=== PATIENT | female | born 1930 | race Caucasian/White ===

== ENCOUNTER → 2017-08-09 | Outpatient (CLI) | payer OTHER | LOC: BHFA 15:30 | PROVIDERS: ATTEND Internal Medicine Cardiovascular Disease | DX: I48.0 Paroxysmal atrial fibrillation (principal) ==

== ENCOUNTER 2017-12-12 00:31 | Emergency (ER) | payer OTHER ==
[2017-12-12] MEDS ORDERED: LET GEL TOPICAL 1 EA SYR TP ONE ×2 (00:36→00:39)
--- NOTE | 2017-12-12 00:50 | EDPHY ---
H & P Time Seen by Provider: 12/12/17 00:48 HPI/ROS: CC: scalp laceration HPI: History per son. Patient is a poor historian. 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 Son states that she was sitting on the toilet and she scraped her head on the vanity that was mounted behind the toilet. She did not fall off the toilet or lose consciousness. He put some antibiotic ointment on it but it continued to ooze blood so he brought her in for evaluation. She states she has no discomfort. She has not been ill recently. She denies any preceding symptoms such as dizziness, lightheadedness, chest pain, shortness of breath, abdominal pain, frequency or dysuria. Her tetanus is up-to-date. She did have a flu shot this year. REVIEW OF SYSTEMS: Constitutional: No fever, no chills. Eyes: No discharge. ENT: No sore throat. Respiratory: No cough, no shortness of breath. Cardiac: No chest pain, no palpitations. Gastrointestinal: No abdominal pain, no vomiting. Genitourinary: No hematuria. Musculoskeletal: No back pain. Skin: No rashes. Neurological: No headache. Past Medical/Surgical History: Past medical history includes atrial fibrillation, breast cancer status post lumpectomy, temporal arteritis, osteopenia, skin cancer left forearm Past surgical history includes a left lumpectomy, hysterectomy, skin cancer removal left forearm No known drug allergies Medications include aspirin 81 mg, metoprolol, Fosamax, and a calcium supplement Primary care provider is Dr. Bolivar [employer] Librarian is Dr. Manny Cazares Oncologist is Dr. Tompkins Social History: Former tobacco user. Quit 25 years ago. Denies alcohol use. She lives with her son. Physical Exam: General Appearance: Alert, no distress, slightly cachectic. Head: There is a scalp abrasion with a 3 cm laceration which continues to ooze blood on the top of the patient's head. Eyes: Keeps eyes closed due to blindness ENT, Mouth: Mucous membranes are moist. Respiratory: There are no retractions, lungs are clear to auscultation. Cardiovascular: Irregularly, irregular rate and rhythm. Gastrointestinal: Abdomen is soft and nontender, no masses, bowel sounds normal. Neurological: Awake and alert, sensory and motor exams grossly normal. Skin: Warm and dry, scab left forearm. Musculoskeletal: Neck and back are supple nontender. Extremities are symmetrical, full range of motion for age. Psychiatric: Patient is oriented, there is no agitation. DIFFERENTIAL DIAGNOSIS: After history and physical exam differential diagnosis was considered for but not limited to: scalp laceration, syncope, dizziness, lightheadedness, arrhythmia, Constitutional: Initial Vital Signs Temperature (C) 97.7 F 12/12/17 00:43 Heart Rate 80 12/12/17 00:43 Respiratory Rate 14 12/12/17 00:43 Blood Pressure 155/102 H 12/12/17 00:43 O2 Sat (%) 94 12/12/17 00:43 O2 Delivery Mode Room Air Allergies/Adverse Reactions: No Known Allergies Allergy (Unverified 12/12/17 00:38) Home Medications: Medication Instructions Recorded Aspirin 81mg (*) 12/12/17 Fosamax 35 MG 12/12/17 Metoprolol Tartrate 12/12/17 Medical Decision Making Procedures: Procedure note: Laceration repair Patient's scalp was anesthetized using multiple doses of LET. The wound was cleansed thoroughly and explored. There was no evidence of foreign body. Twelve tamra were placed. Antibiotic ointment was applied. Patient tolerated the procedure well. ED Course/Re-evaluation: The patient was seen and examined. Vital signs reviewed. Rhythm strip showed the patient to be in atrial fibrillation with a rate controlled in the 70s to 80s bpm range. The patient's scalp laceration was repaired. Please refer to procedure note. Patient's son understands that there could have been preceding symptoms that led to the patient's scalp laceration but he declines a head CT, EKG, blood tests, urinalysis. He understands the tamra are to come out in 12- 14 days. He understands the patient is to be seen sooner if there is any sign of infection. He should follow up with the patient's primary care provider for routine visit within next 1-2 weeks or return to the emergency room sooner if worse. - Data Points Medications Given: Discontinued Medications Tetracaine/Epinephrine/Lidocaine (Let Gel Topical) 1 ea TP EDNOW ONE Stop: 12/12/17 00:40 Last Admin: 12/12/17 00:41 Dose: 1 ea Departure - Departure Disposition: Home, Routine, Self-Care Clinical Impression: Laceration of scalp without complication Qualifiers: Encounter type: initial encounter Qualified Code(s): S01.01XA - Laceration without foreign body of scalp, initial encounter Condition: Good Instructions: Staple Care (ED) Additional Instructions: Staple removal in approximately 10-12 days. Recheck sooner if any problems or concerns. Follow up with your primary care provider as needed. Referrals: Manny Cazares MD [Medical Doctor] - As per Instructions Ernie Bolivar MD [[facility] Primary Care Provider] - As per Instructions Liban Tompkins MD [Medical Doctor] - As per Instructions
[2017-12-12 00:51] VITALS: TEMP 97.7; O2SAT 94
[2017-12-12 03:15] VITALS: BP 133/90; PULSE 72; RESP 12
== END 2017-12-12 01:45 | disposition home or self-care (01) ==
LOC: CED 00:31
PROC: 0HQ0XZZ Repair Scalp Skin, External Approach (ICD-10-PCS; principal; 2017-12-12)
DX: S01.01XA Laceration without foreign body of scalp, initial encounter (principal); Z85.3 Personal history of malignant neoplasm of breast; Z85.828 Personal history of other malignant neoplasm of skin; Z79.82 Long term (current) use of aspirin; W22.8XXA Striking against or struck by other objects, initial encounter; Y92.012 Bathroom of single-family (private) house as the place of occurrence of the external cause

== ENCOUNTER 2018-01-27 13:42 | Inpatient (IN) | payer OTHER ==
[2018-01-27 14:38] LABS: PLATELET COUNT 124 10^3/uL (150-400)
--- NOTE | 2018-01-27 14:47 | CPEKG ---
Heart Rate: 129 RR Interval: 465 QRSD Interval: 80 QT Interval: 296 QTC Interval: 434 QRS [place]: 50 T Wave [place]: -4 EKG Severity - ABNORMAL ECG - EKG Impression: ATRIAL FIBRILLATION EKG Impression: MULTIFORM VENTRICULAR PREMATURE COMPLEXES EKG Impression: LOW VOLTAGE IN FRONTAL LEADS Electronically Signed By: Jose Winston 27-Jan-2018 15:08:02
[2018-01-27] MEDS ORDERED: cefTRIAXone 1 GM VIAL ONE (15:40)
--- NOTE | 2018-01-27 15:53 | EDPHY ---
H & P Stated Complaint: Brought in by son for some trembling and trouble holding and chewing food. Source: Patient, Family (Patient's son provides most of the history.) Exam Limitations: Clinical condition (Patient has dementia and seems more confused than her baseline per patient's son currently.) - Personal History Tetanus Vaccine Date: 2016 - Medical/Surgical History Hx Asthma: No Hx Chronic Respiratory Disease: No Hx Diabetes: No Hx Cardiac Disease: Yes Hx Renal Disease: No Hx Cirrhosis: No Hx Alcoholism: No Hx HIV/AIDS: No Hx Splenectomy or Spleen Trauma: No Other PMH: breast cancer, afib, hysterectomy,dementia,osteoporosis,blindness, macular degeneration temporal arteritis caused her blindness per patient's son - Family History Significant Family History: No pertinent family hx - Social History Smoking Status: Former smoker Time Seen by Provider: 01/27/18 14:06 HPI/ROS: Patient's son brought this patient in for workup of rigors versus tremors, and increasing confusion over baseline. He explains that the patient is blind lives with him and that over past several weeks she has had increasing difficulty with her gait. This was discussed with Dr. Avalos, family practitioner a few weeks back in a discussed the possibility of TIA or mild stroke but given the patient is DNR with other medical ailments that chose not to aggressively pursue this at that time. However patient's son noticed that today she was unable to hold hamburger her right hand because of increasing difficulties with movement. The patient son also reports that she typically has a very robust appetite but this is diminished to bit over the past 24 hr. He also notes that she has had soft stools over the past 24 hr which is new for her. Finally, he reports that she seems to have generalized weakness and a softer voice than usual. ROS: Constitutional: Rigors versus generalized tremors over the past 48 hr intermittently. No documented fevers at home. Positive fatigue-generalized. Less communicative unusual HEENT: No URI symptoms. Pulmonary: Positive cough that started this morning described as a dry cough Cardiovascular: No complaints no chest pain. GI: She denies abdominal pain at this time. : No dysuria Neuro: The patient struck her right forehead against the bathroom door 1 week ago with right forehead hematoma there is no LOC. Patient's son explains the patient was opened the door the same time he was pushing from the other side not realizing she is about to come through the door and struck her in the forehead. She denies headache. She denies focal weakness. Complete review of symptoms otherwise negative. (Jose Winston) - Physical Exam Exam: Physical exam: Vital signs are normal General: Patient is in no acute distress. HEENT: Patient has palm size ecchymosis to the right forehead with a small hematoma and minimal tenderness. Nose atraumatic. Ears: Clear on the right with no hemotympanum. Left: Cerumen impaction Oropharynx: No dental trauma or malocclusion. No intraoral lacerations. Eyes: Pupils are 5 mm and fixed-baseline for this patient with plan is per her son. Neck: Trachea is midline with no stridor. The patient has no midline neck tenderness and retains a full range of motion without increase in pain. Lungs: Rales at the left base. Otherwise clear to auscultation bilaterally Cardiac: Regular rate and rhythm no murmur gallop or rub. Chest: Nontender. Abdomen: Soft nontender no organomegaly Back: Nontender Extremities: Atraumatic Neuro: GCS of 14 for simple and at times seemingly confused responses. Cranial nerves II through XII intact. No focal sensory or motor deficits are appreciated, although the patient is seen of generalized weakness. Initial differential diagnosis: Pneumonia, UTI, sepsis, stroke, subdural hemorrhage, other intracranial bleed, , myocardial ischemic disease, cholangitis (Jose Winston) Constitutional: Initial Vital Signs Temperature (C) 36.6 C 01/27/18 13:51 Heart Rate 115 H 01/27/18 13:51 Respiratory Rate 18 01/27/18 13:51 Blood Pressure 133/90 H 01/27/18 13:51 O2 Sat (%) 93 01/27/18 13:51 O2 Delivery Mode Room Air Allergies/Adverse Reactions: No Known Allergies Allergy (Verified 01/27/18 13:50) Home Medications: Medication Instructions Recorded Aspirin 81mg (*) 12/12/17 Fosamax 35 MG 12/12/17 Metoprolol Tartrate 12/12/17 Medical Decision Making - Diagnostics Imaging Results: Imaging Impressions Chest X-Ray 01/27/18 14:40 Impression: 1. Congestive heart failure. 2. Basilar opacities, right greater than left, which could be cardiogenic or reflect either atelectasis or pneumonia. 3. Upper lobe nodule on the left of uncertain significance with additional evaluation to be considered as clinically directed. 4. See above report for additional findings. Results called and discussed with Dr. Rodriguez on 01/27/2018 at 16:27. Head CT 01/27/18 14:40 Impression: 1. Elderly brain with severe atrophy and probable white matter small vessel disease. 2. Suspect remote cortical ischemia involving the left occipital lobe as well as in the left parasylvian region. 3. See above report for additional findings. Results called and discussed with Dr. Rodriguez on 01/27/2018 at 16:[address] head reviewed by me and discussed with Dr. Crouch shows significant atrophy. 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 No evidence for intracranial bleeding Chest x-ray reviewed by me and also discussed with Dr. Crouch shows some slight bibasilar opacities but no obvious pneumonia however pneumonia cannot be ruled out. Ultrasound right upper quadrant consistent with steatosis. There is no evidence for obstructing stone or acute cholecystitis (Wilbert Rodriguez) ED Course/Re-evaluation: Labs: Leukopenia, comp metabolic panel with elevated alk-phos and LFTs IV Rocephin IV Chest x-ray and CT head are pending Discussion: At 1600 I discussed this case with Dr. Rodriguez, oncoming emergency physician will follow up with patient's studies and finalize disposition. Anticipate likely admission for this patient with new onset confusion, UTI, subacute head injury (Jose Winston) Patient was signed out to me at 4 pm. Patient is re-evaluated by me. She is not responsive to verbal stimuli. Vitals are otherwise stable. History is obtained from her son. I ordered urine culture and serum lactate. I have consulted and discussed the case with Dr. Randle, hospitalist, who agrees to the admission Mott catheter placed. Re-evaluation 5:14 p.m.--patient's condition is unchanged. The son and I discussed treatment plan including recommendation for admission. He expresses understanding and agreement The son and I discussed transport by ambulance to [facility]. He is quite insistent on taking her by private vehicle. We discussed risks and benefits of private vehicle verses ambulance. He understands the risks of private vehicle but would like to take her any way and tells me it is okay because she is DNR (Wilbert Rodriguez) Differential Diagnosis: Certainly this appears to be failure to thrive. Evidence of CVA in the past. Urinary tract infection. Altered mental status. No evidence of intracranial bleeding. Possible pneumonia. She has a urinary tract infection. Possible sepsis tho lactate has not been obtained. Elevated LFTs and I considered cholecystitis however it appears that she has steatosis on ultrasound (Wilbert Rodriguez) - Data Points Laboratory Results: Laboratory Results 01/27/18 14:30 01/27/18 14:30 01/27/18 01/27/18 01/27/18 14:30 14:30 14:30 WBC RBC Hgb Hct MCV MCH MCHC RDW Plt Count MPV Neut % (Auto) Lymph % (Auto) [place] % (Auto) Eos % (Auto) Baso % (Auto) Nucleat RBC Rel Count Absolute Neuts (auto) Absolute Lymphs (auto) Absolute Monos (auto) Absolute Eos (auto) Absolute Basos (auto) Absolute Nucleated RBC Immature Gran % Seg Neutrophils % Band Neutrophils % Lymphocytes % Monocytes % Metamyelocytes % Myelocytes % Immature Gran # Absolute Seg Neuts Absolute Band Neuts Absolute Lymphocytes Absolute Monocytes Absolute Metamyelocyte Absolute Myelocytes Atypical Lymphocytes Toxic Granulation Toxic Vacuolation Platelet Estimate Acanthocytes (Spur) Smear Review By PT 13.6 SEC SEC (12.0-15.0) INR 1.05 (0.83-1.16) APTT 21.0 SEC L SEC (23.0-38.0) Sodium 138 mEq/L mEq/L (135-145) Potassium 4.0 mEq/L mEq/L (3.5-5.2) Chloride 106 mEq/L mEq/L (97-110) Carbon Dioxide 22 mEq/l mEq/l (22-31) Anion Gap 10 mEq/L mEq/L (8-16) BUN 32 mg/dL H mg/dL (7-23) Creatinine 1.1 mg/dL H mg/dL (0.6-1.0) Estimated GFR 47 Glucose 119 mg/dL H mg/dL (70-100) POC Glucose Calcium 9.4 mg/dL mg/dL (8.5-10.4) Total Bilirubin 1.5 mg/dL H mg/dL (0.1-1.4) AST 523 IU/L H IU/L (14-46) ALT 385 IU/L H IU/L (9-52) Alkaline Phosphatase 386 IU/L H IU/L (38-126) Total Protein 5.8 g/dL L g/dL (6.3-8.2) Albumin 3.0 g/dL L g/dL (3.5-5.0) Urine Color YELLOW Urine Appearance CLOUDY Urine pH 8.0 H (5.0-7.5) Ur Specific [place] 1.005 (1.002-1.030) Urine Protein 2+ H (NEGATIVE) Urine Ketones NEGATIVE (NEGATIVE) Urine Blood 3+ H (NEGATIVE) Urine Nitrate POSITIVE H (NEGATIVE) Urine Bilirubin NEGATIVE (NEGATIVE) Urine Urobilinogen 0.2 EU EU (0.2-1.0) Ur Leukocyte Esterase 3+ H (NEGATIVE) Urine RBC TNP Urine WBC TNP Ur Epithelial Cells TNP Ur Renal Epithelial Cell TNP Urine Crystals TNP Ammonium Urate Crystals TNP Calcium Carbonate Cryst TNP Calcium Phosphate Cryst TNP Calcium Oxalate Crystal TNP Leucine Crystals TNP Cystine Crystals TNP Uric Acid Crystals TNP Triple Phos Crystals TNP Sodium Urate Crystals TNP Sulfonamide Crystals TNP Cholesterol Crystals TNP Tyrosine Crystals TNP Bilirubin Crystals TNP Amorphous Sediment TNP Urine Bacteria TNP Epithelial Casts TNP Fatty Casts TNP Hyaline Casts TNP Granular Casts TNP Waxy Casts TNP Broad Casts TNP RBC Casts TNP WBC Casts TNP Urine Mucus TNP Urine Trichomonas TNP Urine Yeast TNP Urine Sperm TNP Ur Oval Fat Bodies TNP Ur Free Fat Droplets TNP Ur Unidentified Matter TNP Urine Glucose NEGATIVE (NEGATIVE) Urine Comment TNP 01/27/18 01/27/18 14:30 14:05 WBC 2.38 10^3/uL L 10^3/uL (3.80-9.50) RBC 4.23 10^6/uL 10^6/uL (4.18-5.33) Hgb 13.2 g/dL g/dL (12.6-16.3) Hct 39.4 % % (38.0-47.0) MCV 93.1 fL fL (81.5-99.8) MCH 31.2 pg pg (27.9-34.1) MCHC 33.5 g/dL g/dL (32.4-36.7) RDW 13.1 % % (11.5-15.2) Plt Count 124 10^3/uL L 10^3/uL (150-400) MPV 8.9 fL fL (8.7-11.7) Neut % (Auto) Not Reported Lymph % (Auto) Not Reported [place] % (Auto) Not Reported Eos % (Auto) Not Reported Baso % (Auto) Not Reported Nucleat RBC Rel Count 0.0 % % (0.0-0.2) Absolute Neuts (auto) Not Reported Absolute Lymphs (auto) Not Reported Absolute Monos (auto) Not Reported Absolute Eos (auto) Not Reported Absolute Basos (auto) Not Reported Absolute Nucleated RBC 0.00 10^3/uL 10^3/uL (0-0.01) Immature Gran % Not Reported Seg Neutrophils % 55 % % Band Neutrophils % 23 % % Lymphocytes % 15 % % Monocytes % 2 % % Metamyelocytes % 4 % % Myelocytes % 1 % % Immature Gran # Not Reported Absolute Seg Neuts 1.3 K/MM3 L K/MM3 (1.8-7) Absolute Band Neuts 0.5 K/MM3 K/MM3 (0-0.7) Absolute Lymphocytes 0.4 K/mm3 L K/mm3 (1.0-4.8) Absolute Monocytes 0.0 K/mm3 K/mm3 (0-0.8) Absolute Metamyelocyte 0.1 K/mm3 H K/mm3 (0-0) Absolute Myelocytes 0.0 K/mm3 K/mm3 (0-0) Atypical Lymphocytes 1+ H Toxic Granulation PRESENT H Toxic Vacuolation PRESENT H Platelet Estimate DECREASED L (ADEQ) Acanthocytes (Spur) 1+ H Smear Review By Pending PT INR APTT Sodium Potassium Chloride Carbon Dioxide Anion Gap BUN Creatinine Estimated GFR Glucose POC Glucose 124 mg/dL H mg/dL (70-100) Calcium Total Bilirubin AST ALT Alkaline Phosphatase Total Protein Albumin Urine Color Urine Appearance Urine pH Ur Specific [place] Urine Protein Urine Ketones Urine Blood Urine Nitrate Urine Bilirubin Urine Urobilinogen Ur Leukocyte Esterase Urine RBC Urine WBC Ur Epithelial Cells Ur Renal Epithelial Cell Urine Crystals Ammonium Urate Crystals Calcium Carbonate Cryst Calcium Phosphate Cryst Calcium Oxalate Crystal Leucine Crystals Cystine Crystals Uric Acid Crystals Triple Phos Crystals Sodium Urate Crystals Sulfonamide Crystals Cholesterol Crystals Tyrosine Crystals Bilirubin Crystals Amorphous Sediment Urine Bacteria Epithelial Casts Fatty Casts Hyaline Casts Granular Casts Waxy Casts Broad Casts RBC Casts WBC Casts Urine Mucus Urine Trichomonas Urine Yeast Urine Sperm Ur Oval Fat Bodies Ur Free Fat Droplets Ur Unidentified Matter Urine Glucose Urine Comment Medications Given: Discontinued Medications Ceftriaxone Sodium/Dextrose (Rocephin 1 Gm (Premix)) 50 mls @ 100 mls/hr IV EDNOW ONE PRN Reason: Protocol Stop: 01/27/18 16:04 Last Admin: 01/27/18 15:45 Dose: 50 mls Point of Care Test Results: 01/27/18 14:05 POC Glucose 124 H Departure - Departure Disposition: [facility] Acute Clinical Impression: Urinary tract infection Qualifiers: Urinary tract infection type: site unspecified Hematuria presence: without hematuria Qualified Code(s): N39.0 - Urinary tract infection, site not specified Altered mental status, unspecified Qualifiers: Altered mental status type: somnolence Qualified Code(s): R40.0 - Somnolence Condition: Fair
[2018-01-27 16:26] LABS: INR 1.05 (0.83-1.16); PROTIME(PATIENT) 13.6 SEC (12.0-15.0)
[2018-01-27] MEDS ORDERED: FUROSEMIDE 20 MG/2 ML VIAL IVP ONE (19:31)
[2018-01-27] MEDS ORDERED: ACETAMINOPHEN 325 MG TAB PO PRN (19:32)
[2018-01-27] MEDS ORDERED: ONDANSETRON 4 MG/2 ML VIAL IVP PRN (19:32)
[2018-01-27] MEDS ORDERED: ONDANSETRON DISINTEGRATING 4 MG TAB PO PRN (19:32)
--- NOTE | 2018-01-27 20:12 | GHP ---
[f rep st] HISTORY AND PHYSICAL DATE OF ADMISSION: 01/27/2018 HISTORY OF PRESENT ILLNESS: The patient is an 87-year-old female with history of blindness secondary to giant cell arteritis, as well as breast cancer, presents with increasing generalized weakness. A bout a month ago, her son who is the primary caregiver noted that she had a shuffling gait, and they saw her primary care physician. They considered MRI but it was deferred. That has continued over the last couple days. He has noticed that she has gotten progressively weaker. Today, she was sitting on the toilet. Her legs were shaking. Monday is ger , and she was having a hard time holdin g her burger because of shaking in her hands. Food was falling out of her mouth and she was generali zed weak. She has now been complaining of urgency, frequency, dysuria. She had an episode of stool incontinence with soft stool yesterday. She was recently treated for UTI. She has not had cough or sputum or shortness of breath. She is not complaining of chest pain. When I see the patient, she is somnolent, difficult to arouse, but is arousable and really does not a nswer much in the way of questions. Her son acknowledges this is unusual for her. He notes that her typical baseline is that she is able to be conversant and perform some of her ADLs with assistance. REVIEW OF SYSTEMS: Complete 10-point review of systems conducted negative except as noted in the HPI . PAST MEDICAL HISTORY: 1. Breast cancer. 2. Giant cell arteritis causing blindness. 3. Recent UTI. 4. Atrial fibrillation on metoprolol and aspirin. SOCIAL HISTORY: She lives with her son. No tobacco. No alcohol. Enjoys Monday evening mass. FAMILY HISTORY: Parents . CODE STATUS: Do not resuscitate. ALLERGIES: No known drug allergies. HOME MEDICATIONS: Metoprolol, aspirin, anastrozole, and Fosamax. PHYSICAL EXAMINATION: VITAL SIGNS: Temp 36.6, blood pressure 133/90, pulse low 100s, breathing 18 t imes a minute, 93% on room air. GENERAL: No acute distress. HEENT: Sclerae anicteric. Oropharynx clear. Mucous membranes are dry. NECK: Supple. There is JVD to the angle of the jaw. HEART: S1 , S2. Not tachycardic. LUNGS: Clear to auscultation anterolaterally. She is unable to comply with more complete exam. ABDOMEN: Soft, nontender, nondistended. LOWER EXTREMITIES: Without edema. C lugo are nontender. SKIN: Without rash. NEUROLOGIC: Nonfocal. LABORATORY DATA: Sodium 138, potassium 4.0, chloride 106, bicarb 22, BUN 32, creatinine 1.1. These numbers are worse than her baseline. LFTs: AST and ALT are 523 and 385. Alkaline phosphatase 386. Albumin is 3. UA: Positive nitrates. There is no cell count. Venous lactate is elevated to 2.4. Coags normal. White count 2.4, hematocrit 39, platelets 124,000. Chest x-ray interpreted by me shows left upper lobe rounded nodule of uncertain significance as well as congestive heart failure. EKG interpreted by me shows atrial fibrillation at 129 with normal axis and intervals. No ST or T-wave changes. Abdominal ultrasound shows hepatic steatosis without signi ficant gallbladder disease. Noncontrast head CT shows severe atrophy. I have discussed the case with Dr. Wilbert Rodriguez. ASSESSMENT/PLAN: 87-year-old female presents with generalized weakness and multiple findings: 1. Elevated liver function tests. There is not a certain cause going on here. Her gallbladder does not appear to be a cause for her transaminitis. She does not appear to be ischemic, so shock liver is less likely. I will send a Tylenol level and acute hepatitis panel. I suspect this may be due to hepatic congestion. 2. Question congestive heart failure. The patient has a chest x-ray consistent with congestive hear t failure but noted that she does not have lower extremity edema, nor does she have much of an oxygen requirement. I suspect she could have diastolic failure on the basis of poorly controlled atrial fi brillation. I will perform an echocardiogram. We will give her 20 mg of Lasix now and follow and se e what happens. Will also follow her on telemetry to look for occult arrhythmia such as very fast at rial fibrillation or sinus bradycardia. 3. Encephalopathy. I think this is secondary to a medical cause as detailed above. 4. Elevated creatinine. It is greater than her baseline of 0.8 a few weeks ago. As I discussed abo ve, we will give her some Lasix and follow. I will not give her scheduled Lasix tomorrow. Tomorrow' s provider can follow. 5. Code status: Do not resuscitate. 6. Disposition: PT OT inpatient. /[id number]/MODL
[2018-01-27] MEDS: METOPROLOL TARTRATE 25 MG TAB PO SCH ×2 (22:11→23:50)
--- NOTE | 2018-01-27 23:39 | PDMN ---
Medical Necessity Medical necessity: C/M review: est. > 2 MN LOS for eval and TX of acute elevated liver function tests of unclear etiology, question congestive heart failure, encephalopathy, elevated creatinine, requiring planned echocardiogram , ongoing cardiac monitoring, acute inpt PT/OT, comorbid history of shuffling gait approximately a month ago, progressive weakness, patient recently treated for urinary tract infection, blindness secondary to giant cell arteritis, breast cancer, atrial fibrillation per H/P.
[2018-01-28 04:50] LABS: PLATELET COUNT 110 10^3/uL (150-400)
[2018-01-28] MEDS ORDERED: FUROSEMIDE 40 MG/4 ML VIAL IVP SCH (09:00)
[2018-01-28] MEDS: ENOXAPARIN 30 MG/0.3 ML SYR SC SCH (10:27)
[2018-01-28] MEDS: ASPIRIN EC 81 MG TAB PO SCH (10:28)
[2018-01-28] MEDS: MULTIVITAMINS 1 EACH TAB PO SCH (10:28)
[2018-01-28] MEDS: METOPROLOL TARTRATE 25 MG TAB PO SCH ×2 (10:28→21:14)
[2018-01-28] MEDS: ANASTROZOLE 1 MG TAB PO SCH (10:28)
[2018-01-28] MEDS: CALCIUM CARB W/VIT D 500 MG TAB PO SCH ×3 (10:28→16:58)
[2018-01-28] MEDS: CHOLECALCIFEROL VIT D3 1,000 UNITS TAB PO SCH (10:29)
[2018-01-28] MEDS: FERROUS SULFATE 325 MG TAB PO SCH (10:29)
[2018-01-28] MEDS ORDERED: NS 500 ML IV ONE (10:48)
[2018-01-28] MEDS: CEFEPIME HCL 2 GM in STERILE WATER INJ 12.5 ML IV SCH (10:59)
[2018-01-28] MEDS: NS 1,000 ML IV SCH (11:10)
--- NOTE | 2018-01-28 11:52 | HOSPPROG ---
Hospitalist Progress Note Assessment/Plan: #Likely Sepsis: Leukocytosis, AMS, Tachycardia, Hypotension, Elevated lactic acid, likely source of infection urine vs pneumonia, + blood culture -will provide IVF bolus plus ongoing -repeat serum lactate, check procalcitonin #Dehydration, looks dry -IVF per above #Possible bilateral basilar pneumonia with Hypoxemia -She does not endorse any cough or SOB. #Possible UTI, she denies any Urinary sx's -Mott has been placed #Gram negative bacteremia -Received Rocephin x 1 in the E.D. -Was changed to Cefepime overnight once blood cultures results were available -She will receive her first dose this morning. Will wait for cultures ID and sensitivity to come back, but abx can likely be deescalated #Afib with tachycardia. She is in Afib. -Cont Metoprolol -cont Aspirin #Acute Encephalopathy -Likely due to infection and dehydration -Head CT was unremarkable -She has a large bruise on her forehead of unclear etiology, I do not see any fall reported #Transaminitis, possibly due to steatosis -RUQ US with Hepatomegaly -INR unremarkable -LFT's improving. Cont to monitor -Hepatic panel is pending #?CHF: Await w/u. Currently she looks dry. Hold diuretics. total critical care time spent on this pt with likely sepsis and acute encephalopathy is 40 minutes. D/W nursing Subjective: + blood cultures. + Hypotension. Still confused. Looks dry Objective: Vital Signs Temp Pulse Resp BP Pulse Ox 36.6 C 78 19 98/77 L 94 01/28/18 08:00 01/28/18 08:00 01/28/18 08:00 01/28/18 08:00 01/28/18 08:00 Laboratory Results 01/28/18 04:34 01/28/18 04:34 01/27/18 01/28/18 01/29/18 05:59 05:59 05:59 Intake Total 1200 Output Total 1035 Balance 165 PT 13.6 SEC (12.0-15.0) 01/27/18 14:30 INR 1.05 (0.83-1.16) 01/27/18 14:30 - Physical Exam Constitutional: no apparent distress, chronically ill appearing Eyes: PERRL, EOMI Ears, Nose, Mouth, Throat: dry mucous membranes Cardiovascular: irregularly irregular, No edema Respiratory: reduced air movement Gastrointestinal: normoactive bowel sounds, soft, non-tender abdomen Skin: warm Neurologic: No AAOx3 Psychiatric: encephalopathic, No interacting appropriately Lymph, Heme, Immunologic: No petechiae ICD10 Worksheet Patient Problems: Problems Problem Status Onset Altered mental status, unspecified Acute Urinary tract infection Acute
--- NOTE | 2018-01-28 13:32 | ASMTCMCOM ---
CM Note CM Note Notes: 87yr old female admitted for weakness, AMS possible UTI?, CHF? Patient has a Hx of blindness and breast CA. Patient lives with her son who is her clinical services director. PT has evaluated, felt she was lethargic and thought patient might need HC vs SNF. CM to follow for discharge needs. Date Signed: 01/28/2018 01:31 PM Electronically Signed By:Florence Herrera LCSW
[2018-01-29 02:59] LABS: HEPATITIS B SURFACE ANTIGEN NEGATIVE (NEGATIVE)
[2018-01-29 03:05] LABS: HEPATITIS A ANTIBODY IGM (BCH) NEGATIVE (NEGATIVE); HEPATITIS B CORE AB IGM NEGATIVE (NEGATIVE)
[2018-01-29 03:16] LABS: HEPATITIS C ANTIBODY TOTAL NEGATIVE (NEGATIVE)
[2018-01-29] MEDS: NS 1,000 ML IV SCH (03:53)
[2018-01-29 05:30] LABS: PLATELET COUNT 116 10^3/uL (150-400)
[2018-01-29] MEDS ORDERED: ALENDRONATE SODIUM 70 MG TAB PO SCH (07:00)
[2018-01-29] MEDS: ASPIRIN EC 81 MG TAB PO SCH (08:34)
[2018-01-29] MEDS: CHOLECALCIFEROL VIT D3 1,000 UNITS TAB PO SCH (08:34)
[2018-01-29] MEDS: ANASTROZOLE 1 MG TAB PO SCH (08:34)
[2018-01-29] MEDS: METOPROLOL TARTRATE 25 MG TAB PO SCH ×2 (08:34→22:10)
[2018-01-29] MEDS: CALCIUM CARB W/VIT D 500 MG TAB PO SCH ×3 (08:34→19:15)
[2018-01-29] MEDS: FERROUS SULFATE 325 MG TAB PO SCH (08:34)
[2018-01-29] MEDS: MULTIVITAMINS 1 EACH TAB PO SCH (08:34)
[2018-01-29] MEDS: CEFEPIME HCL 2 GM in STERILE WATER INJ 12.5 ML IV SCH (08:34)
[2018-01-29] MEDS: ENOXAPARIN 30 MG/0.3 ML SYR SC SCH (08:35)
--- NOTE | 2018-01-29 14:20 | HOSPPROG ---
Hospitalist Progress Note Assessment/Plan: # Sepsis -(Leukocytosis, Tachycardia, Hypotension, Elevated lactic acid) source of infection urine - procalcitonin very elevated -continue IVF until p.o. Adequate - continue empiric IV antibiotics # acute Dehydration- tachycardia - hydrated overnight -continue IVF # Bilateral basilar pneumonia - -She does not endorse any cough or SOB. - continue IV antibiotics # Proteus UTI-culture positive -DC Mott # Proteus bacteremia -continue IV Cefepime - recheck surveillance cultures tomorrow # Afib with tachycardia- TELE (personally reviewed and interpreted) atrial fibrillation with tachycardia -Cont Metoprolol -cont Aspirin # Acute Encephalopathy-suspect due to infection and dehydration- suspect underlying cognitive deficits -Head CT was unremarkable #Transaminitis, possibly due to steatosis -RUQ US with Hepatomegaly -LFT's improving. Cont to monitor # prophylaxis Lovenox # diet regular # disposition-greater than 2 midnights as the patient is presenting with sepsis from urinary source requiring IV fluid resuscitation antibiotics and care I discussed the case with the RN- we will discontinue Mott catheter today encourage p. O. Intake if adequate will DC IV fluids Subjective: Denies pain Objective: Vital Signs Temp Pulse Resp BP Pulse Ox 36.2 C 76 17 123/87 H 92 01/29/18 11:54 01/29/18 11:54 01/29/18 11:54 01/29/18 11:54 01/29/18 11:54 Laboratory Results 01/29/18 05:03 01/29/18 05:03 01/28/18 01/29/18 01/30/18 05:59 05:59 05:59 Intake Total 1200 1000 200 Output Total 1035 550 550 Balance 165 450 -350 PT 13.6 SEC (12.0-15.0) 01/27/18 14:30 INR 1.05 (0.83-1.16) 01/27/18 14:30 - Physical Exam Constitutional: chronically ill appearing Eyes: anicteric sclera Ears, Nose, Mouth, Throat: moist mucous membranes Cardiovascular: regular rate and rhythym Respiratory: no respiratory distress Gastrointestinal: normoactive bowel sounds Genitourinary: no bladder fullness Skin: warm Musculoskeletal: No asymmetric calves Neurologic: AAOx3 Psychiatric: interacting appropriately Lymph, Heme, Immunologic: no cervical LAD ICD10 Worksheet Patient Problems: Problems Problem Status Onset Altered mental status, unspecified Acute Urinary tract infection Acute
--- NOTE | 2018-01-29 14:59 | ASMTCMCOM ---
CM Note CM Note Notes: Pt and son agreeable to [facility] PT/OT, choose [facility] who can accept pt. Son can also provide 24/hr supervision CM to follow. Date Signed: 01/29/2018 02:58 PM Electronically Signed By:CADENCE Crouch
[2018-01-30] MEDS: CEFEPIME HCL 2 GM in STERILE WATER INJ 12.5 ML IV SCH (09:52)
[2018-01-30] MEDS: ASPIRIN EC 81 MG TAB PO SCH (09:54)
[2018-01-30] MEDS: METOPROLOL TARTRATE 25 MG TAB PO SCH ×2 (09:54→22:10)
[2018-01-30] MEDS: ANASTROZOLE 1 MG TAB PO SCH (09:54)
[2018-01-30] MEDS: ENOXAPARIN 30 MG/0.3 ML SYR SC SCH (09:54)
[2018-01-30] MEDS: CALCIUM CARB W/VIT D 500 MG TAB PO SCH ×3 (09:54→18:37)
[2018-01-30] MEDS: MULTIVITAMINS 1 EACH TAB PO SCH (09:54)
[2018-01-30] MEDS: CHOLECALCIFEROL VIT D3 1,000 UNITS TAB PO SCH (09:55)
[2018-01-30] MEDS: FERROUS SULFATE 325 MG TAB PO SCH (09:55)
--- NOTE | 2018-01-30 15:27 | HOSPPROG ---
Hospitalist Progress Note Assessment/Plan: # Sepsis -(Leukocytosis, Tachycardia, Hypotension, Elevated lactic acid) source of infection urine - procalcitonin very elevated- improved today WBC 18-> 10 patient afebrile overnight clinically markedly improved - dc IVF as p.o. Adequate - continue IV antibiotics- # acute Dehydration- tachycardia - hydrated overnight- resolved -continue IVF # Bilateral basilar atelectasis/infiltrate - -She does not endorse any cough or SOB.- suspect more likely atelectasis Oxygen saturations 90% on room air - continue supportive care # Proteus UTI-culture positive- caldwell-sensitive on sensitivities -DC Mott - continue antibiotics # Proteus bacteremia- cultures confirm pansensitive - changing from cefepime to ceftriaxone - recheck surveillance today - with transition to p.o. Levofloxacin for total 14 day course of antibiotics of cultures cleared tomorrow # Afib with tachycardia- TELE (personally reviewed and interpreted) atrial fibrillation 70-90's -Cont Metoprolol -cont Aspirin # Acute Encephalopathy-suspect due to infection and dehydration- patient back to baseline per son this morning -Head CT was unremarkable #Transaminitis, possibly due to sepsis/hypoperfusion -RUQ US with Hepatomegaly -LFT's improving. Cont to monitor # prophylaxis Lovenox # diet regular # disposition-plan for DC home with home health tomorrow is surveillance cultures remain negative I discussed the case with the RN- we will collect surveillance cultures today patient markedly improving Subjective: Feeling better today Objective: Vital Signs Temp Pulse Resp BP Pulse Ox 36.8 C 90 22 H 113/74 94 01/30/18 15:22 01/30/18 15:22 01/30/18 15:22 01/30/18 15:22 01/30/18 15:22 Microbiology 01/27/18 17:05 Urine Culture - Final Urine,Catheterized Proteus Mirabilis Laboratory Results 01/30/18 04:59 01/30/18 04:59 01/29/18 01/30/18 01/31/18 05:59 05:59 05:59 Intake Total 1000 600 Output Total 550 1100 Balance 450 -500 PT 13.6 SEC (12.0-15.0) 01/27/18 14:30 INR 1.05 (0.83-1.16) 01/27/18 14:30 - Physical Exam Constitutional: no apparent distress Eyes: anicteric sclera Ears, Nose, Mouth, Throat: moist mucous membranes Cardiovascular: regular rate and rhythym Respiratory: no respiratory distress Gastrointestinal: normoactive bowel sounds Genitourinary: no bladder fullness Skin: warm Musculoskeletal: No asymmetric calves Neurologic: other (Blind) Psychiatric: interacting appropriately Lymph, Heme, Immunologic: no cervical LAD ICD10 Worksheet Patient Problems: Problems Problem Status Onset Altered mental status, unspecified Acute Urinary tract infection Acute
[2018-01-31] MEDS ORDERED: ALENDRONATE SODIUM 70 MG TAB PO SCH (07:00)
[2018-01-31] MEDS ORDERED: CEFTRIAXONE IV SCH (09:00)
[2018-01-31] MEDS ORDERED: STERILE WATER IV SCH (09:00)
[2018-01-31] MEDS ORDERED: FUROSEMIDE 40 MG/4 ML VIAL IVP ONE (09:48)
[2018-01-31] MEDS: METOPROLOL TARTRATE 25 MG TAB PO SCH (09:57)
[2018-01-31] MEDS: ASPIRIN EC 81 MG TAB PO SCH (09:58)
[2018-01-31] MEDS: CHOLECALCIFEROL VIT D3 1,000 UNITS TAB PO SCH (09:58)
[2018-01-31] MEDS: CALCIUM CARB W/VIT D 500 MG TAB PO SCH ×3 (09:58→17:56)
[2018-01-31] MEDS: MULTIVITAMINS 1 EACH TAB PO SCH (09:58)
[2018-01-31] MEDS: FERROUS SULFATE 325 MG TAB PO SCH (09:58)
[2018-01-31] MEDS: ANASTROZOLE 1 MG TAB PO SCH (09:58)
--- NOTE | 2018-01-31 10:00 | HOSPPROG ---
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 Objective: Vital Signs Temp Pulse Resp BP Pulse Ox 36.8 C 91 20 131/89 H 92 01/31/18 08:00 01/31/18 08:00 01/31/18 08:00 01/31/18 08:00 01/31/18 08:00 Microbiology 01/27/18 17:05 Urine Culture - Final Urine,Catheterized Proteus Mirabilis Laboratory Results 01/30/18 04:59 01/30/18 04:59 01/30/18 01/31/18 02/01/18 05:59 05:59 05:59 Intake Total 600 400 Output Total 1100 800 Balance -500 -400 PT 13.6 SEC (12.0-15.0) 01/27/18 14:30 INR 1.05 (0.83-1.16) 01/27/18 14:30 Abd us - no obstruction or stone tele reviewed - rapid afib - HR 115 CXR viewed, my personal interpretation is - mild CHF - Physical Exam Constitutional: no apparent distress, appears nourished, not in pain Eyes: No PERRL Cardiovascular: no murmur, rub, or gallop, irregularly irregular, edema (1+) Respiratory: no respiratory distress, no rales or rhonchi, clear to auscultation Gastrointestinal: normoactive bowel sounds, soft, non-tender abdomen, no palpable masses Skin: no rashes or abrasions, no fluctuance, no induration Neurologic: AAOx3, sensation intact bilaterally Psychiatric: interacting appropriately, not anxious, not encephalopathic, thought process linear ICD10 Worksheet Patient Problems: Problems Problem Status Onset Altered mental status, unspecified Acute Urinary tract infection Acute
[2018-01-31] MEDS: ENOXAPARIN 30 MG/0.3 ML SYR SC SCH (10:03)
[2018-01-31] MEDS ORDERED: METOPROLOL TARTRATE 25 MG TAB PO SCH (10:08)
[2018-01-31] MEDS ORDERED: METOPROLOL TARTRATE 25 MG TAB PO ONE (10:15)
[2018-01-31] MEDS ORDERED: METOPROLOL TARTRATE 50 MG TAB PO SCH (21:00)
[2018-02-01 06:04] LABS: PLATELET COUNT 147 10^3/uL (150-400)
[2018-02-01] MEDS ORDERED: METOPROLOL TARTRATE 25 MG TAB PO SCH (08:38)
[2018-02-01] MEDS: CALCIUM CARB W/VIT D 500 MG TAB PO SCH ×2 (09:38→11:45)
[2018-02-01] MEDS: ANASTROZOLE 1 MG TAB PO SCH (09:38)
[2018-02-01] MEDS: ENOXAPARIN 30 MG/0.3 ML SYR SC SCH (09:39)
[2018-02-01] MEDS: ASPIRIN EC 81 MG TAB PO SCH (09:40)
[2018-02-01] MEDS: CHOLECALCIFEROL VIT D3 1,000 UNITS TAB PO SCH (09:40)
[2018-02-01] MEDS: MULTIVITAMINS 1 EACH TAB PO SCH (09:40)
[2018-02-01] MEDS: FERROUS SULFATE 325 MG TAB PO SCH (09:40)
[2018-02-01 12:51] VITALS: BP 110/60; PULSE 87; RESP 18; TEMP 98.3; O2SAT 92
--- NOTE | 2018-02-01 12:52 | HOSPPROG ---
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 85% room air. No CP/SOB Objective: Vital Signs Temp Pulse Resp BP Pulse Ox 36.8 C 76 16 120/75 93 02/01/18 08:00 02/01/18 09:39 02/01/18 08:00 02/01/18 09:39 02/01/18 08:00 Laboratory Results 02/01/18 05:48 02/01/18 05:48 01/31/18 02/01/18 02/02/18 05:59 05:59 05:59 Intake Total 400 1480 Output Total 800 300 Balance -400 1180 PT 13.6 SEC (12.0-15.0) 01/27/18 14:30 INR 1.05 (0.83-1.16) 01/27/18 14:30 tele reviewed - HR 125 when I saw her initially in rapid afib, back down with rest, but bumped back up just adjusting in bed - Physical Exam Constitutional: no apparent distress, appears nourished, not in pain Eyes: other (blind, eyes shut) Cardiovascular: regular rate and rhythym, no murmur, rub, or gallop Respiratory: no respiratory distress, no rales or rhonchi, clear to auscultation Gastrointestinal: normoactive bowel sounds, soft, non-tender abdomen, no palpable masses Skin: no rashes or abrasions, no fluctuance, no induration Neurologic: AAOx3, sensation intact bilaterally Psychiatric: interacting appropriately, not anxious, not encephalopathic, thought process linear ICD10 Worksheet Patient Problems: Problems Problem Status Onset Altered mental status, unspecified Acute Urinary tract infection Acute
[2018-02-01] MEDS ORDERED: IOPAMIDOL (ISOVUE 370) 100 ML BTL IV ONE (13:42)
--- NOTE | 2018-02-01 14:48 | PDHOMEO2F ---
Home Oxygen Face to Face Home Orders: I certify that a physician or a nurse practitioner or physician's congressional assistant has had a [id number] encounter with this patient on the date of this order due to the diagnosis listed, which relates to the primary reason the patient requires home oxygen. Alternative treatments have been tried, or considered, and deemed ineffective. It is anticipated that supplemental oxygen will result in improvement with treatment. Home oxygen qualifying diagnosis: chronic respiratory failure, restrictive lung disease SpO2 on room air (%): 85 Frequency of home oxygen needed: continuous Home oxygen liters per minute: 2 Home oxygen delivery device: nasal cannula Concentrator: Yes E-tanks for mobility and back up: Yes If ordering portable O2, is the patient mobile in the home?: Yes I certify that, based on these findings, the home oxygen is medically necessary for this patient for the following length of time. Length of time home oxygen needed: 99 years
--- NOTE | 2018-02-01 14:52 | PDIAF ---
- Diagnosis Diagnosis: Proteus sepsis Code Status: Do Not Resuscitate - Medication Management Discharge Medications: Medications to Continue on Transfer Alendronate Sodium [Fosamax 70 MG (*)] 70 mg PO TU@0700 01/27/18 [Last Taken ] Anastrozole [Arimidex 1 mg (*)] 1 mg PO DAILY 01/27/18 [Last Taken 01/27/18] Aspirin EC [Aspirin EC 325 mg (*)] 325 mg PO DAILY 01/27/18 [Last Taken 01/27/18 ] Calcium Carb W/Vit D [Calcium Carb W/Vit D 500/200 (*)] 500 mg PO TIDMEAL [Last Taken 01/27/18] Cholecalciferol Vit D3 [Vitamin D3 (*)] 1,000 units PO DAILY 01/27/18 [Last Taken 01/27/18] Ferrous Sulfate [Ferrous Sulf 325 MG (*)] 325 mg PO DAILY 01/27/18 [Last Taken 01/27/18] Multivitamins [Multivitamin (*)] 1 each PO DAILY 01/27/18 [Last Taken 01/27/18] Metoprolol Tartrate [Lopressor 25 mg (*)] 37.5 mg PO BID #90 tab 02/01/18 [Last Taken Unknown] levOFLOXACIN [levAQUIN (*)] 750 mg PO Q2D@1000 #3 tab 02/01/18 [Last Taken Unknown] Discharge Medications: Refer to the Discharge Home Medication list for PRN reason. - Orders Services needed: Home Care, Registered Nurse, Physical Therapy, Occupational Therapy, Speech Language Pathologist Home Care Face to Face: I certify that this patient was under my care and that I had the required [id number] encounter meeting the encounter requirements on the discharge day. My findings support the fact that the patient is homebound as defined in Home Care Face to Face Continued: CMS Chapter 7 Medicare Benefits Manual 30.1.1 , The condition of the patient is such that there exists a normal inability to leave home and consequently, leaving home would require a considerable and taxing effort. Diet Texture: Dysphagia 3 - Advanced - Moist, Bite-Size, Thin Liquids, Meds Whole w/Liquids - Follow Up Care Current Providers and Referrals: April Avalos MD [Primary Care Provider] - As per Instructions
--- NOTE | 2018-02-01 15:38 | GDS ---
[f rep st] DISCHARGE SUMMARY DISCHARGE DIAGNOSES: 1. Sepsis due to urinary tract infection. 2. Proteus urinary tract infection and bacteremia. 3. Hypoxemia. 4. Atrial fibrillation with rapid ventricular response. 5. Metabolic encephalopathy due to sepsis. 6. Increased liver function tests due to sepsis and hypoperfusion. 7. Hepatic steatosis with chronically elevated liver function tests. 8. 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 9. 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 HISTORY: The patient is an 87-year-old female who presented with urosepsis. Blood and urine both gr ew a pansensitive Proteus. She was treated with IV antibiotics and dramatically improved. Proteus i s sensitive to Levaquin, so she can complete a 14-day course of oral therapy. Her followup surveilla nce blood cultures are negative. Her metabolic encephalopathy resolved, and she is back to baseline. During this hospitalization, she was found to be hypoxemic, 85% on room air. She also got tachycardi c with minimal activity. CTA of the chest was negative for PE. 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 She will discharge ho ne with oxygen. Hopefully, this is due to atelectasis and can be weaned off. She is blind but lives with her very attentive son who is really at her side every time she ambulates. Due to his attentiv eness, she has not fallen. Due to her rapid ventricular response and her atrial fibrillation, I have up titrated her metoprolol to 37.5 mg p.o. b.i.d. with adequate control. She will continue on aspir in for stroke prevention. DISCHARGE MEDICATIONS: Please see computerized record for full detailed list. New medications: 1. Metoprolol increased to 37.5 mg p.o. b.i.d. 2. Levaquin 750 mg every 2 days for 4 more doses to complete a 14-day course. The patient's son has been advised regarding risks of Levaquin in the elderly, including confusion. She seems to be beverley ating it at this time. ADDITIONAL DISCHARGE INSTRUCTIONS: 1. Follow up with primary care regarding incidental finding of pulmonary tumor on CT scan. I suspec t this is slow growing and will not require any further workup. 2. Home oxygen / until room air saturations return to greater than 90%. 3. Home health, PT, OT, VNS ordered. 4. Greater than 30 minutes' time were spent arranging this discharge. Patient was seen and examined by me on day of discharge. /[id number]/MODL
--- NOTE | 2018-02-01 15:41 | ASMTCMCOM ---
CM Note CM Note Notes: Pt medically stable for d/c with [facility] PT. Pt luci Potter to transport pt home. Orders to be obtained via [employer]. Date Signed: 02/01/2018 03:41 PM Electronically Signed By:CADENCE Crouch
--- NOTE | 2018-02-01 16:37 | ASDISCHSUM ---
Discharge Information Plan Status:Home with Home Health Medically Cleared to Leave: Discharge Date:02/01/2018 04:13 PM CM D/C Disposition:Home Health Service ADT D/C Disposition:Home Health Service Projected Discharge Date:02/01/2018 11:00 AM Transportation at D/C:Family Discharge Delay Reason: Follow-Up Date:02/01/2018 11:00 AM Discharge Slot: Final Diagnosis:Weakness, AMS, UTI Placement Information Referral Type:*Home Health Care Services Referral ID:[id number] Provider Name:[facility] [address] [address] Address 2: City:[place] Selection Factors: State:[place] Patient Contact Information Contact Name:ADALBERTO Relationship:Son Address:[address] [place] [address] City:[place] Alternate Phone: State/Zip Code:[place] [address] Email: Financial Information Financial Class:Medicare Primary Plan Desc:MEDICARE INPATIENT Primary Plan Number:[id number] Secondary Plan Desc: Secondary Plan Number: Assessment Information [facility] CM Progress Note CM Note CM Note Notes: 87yr old female admitted for weakness, AMS possible UTI?, CHF? Patient has a Hx of blindness and breast CA. Patient lives with her son who is her end user consultant. PT has evaluated, felt she was lethargic and thought patient might need HC vs SNF. CM to follow for discharge needs. Date Signed: 01/28/2018 01:31 PM Electronically Signed By:Florence Herrera LCSW [facility] CM Progress Note CM Note CM Note Notes: Pt and son agreeable to [facility] PT/OT, choose [facility] who can accept pt. Son can also provide 24/hr supervision CM to follow. Date Signed: 01/29/2018 02:58 PM Electronically Signed By:CADENCE Crouch [facility] CM Progress Note CM Note CM Note Notes: Pt medically stable for d/c with [facility] PT. Pt luci Potter to transport pt home. Orders to be obtained via [employer]. Date Signed: 02/01/2018 03:41 PM Electronically Signed By:CADENCE Crouch Intervention Information
== END 2018-02-01 16:13 | disposition home health service (06) | DRG 871 ==
LOC: CED 13:42 → CEDHOLD 16:40 → F3N 18:56
PROVIDERS: ADMIT Internal Medicine; ATTEND Internal Medicine
DX: A41.89 Other specified sepsis (principal); G93.41 Metabolic encephalopathy; N39.0 Urinary tract infection, site not specified; B96.4 Proteus (mirabilis) (morganii) as the cause of diseases classified elsewhere; I48.91 Unspecified atrial fibrillation; R09.02 Hypoxemia; K76.0 Fatty (change of) liver, not elsewhere classified; M31.6 Other giant cell arteritis; F03.90 Unspecified dementia, unspecified severity, without behavioral disturbance, psychotic disturbance, mood disturbance, and anxiety; M81.0 Age-related osteoporosis without current pathological fracture; H54.3 Unqualified visual loss, both eyes; E86.0 Dehydration; Z66 Do not resuscitate; Z85.3 Personal history of malignant neoplasm of breast
CPT/HCPCS: 70450-PO; 71046-PO; 76705-PO; 80053-PO; 81003-PO; 81015-PO; 83605-PO; 85025-PO; 85610-PO; 85730-PO; 92610-GN; 96374; 97116-GP; 97162-GP; 97166-GO; 97530-GO; 97530-GP; 97535-GO; G0472; G0480; G8978-GP-CK; G8979-GP-CI; G8980-GP-CI; G8987-GO-CL; G8988-GO-CK; G8996-GN-CI; G8997-GN-CI; G8998-GN-CI; J0692; J0696; J1650; J1940; Q9967

== ENCOUNTER → 2018-04-26 | Outpatient (CLI) | payer OTHER ==
[~2018-04-26] MED LIST: IOPAMIDOL (ISOVUE-300) 100 ML BTL ONE
== END ==
LOC: CIMAGING 09:21
PROVIDERS: ATTEND Internal Medicine
DX: R91.1 Solitary pulmonary nodule (principal); J90 Pleural effusion, not elsewhere classified; I70.0 Atherosclerosis of aorta; M51.34 Other intervertebral disc degeneration, thoracic region; C50.919 Malignant neoplasm of unspecified site of unspecified female breast
CPT/HCPCS: 71260; Q9967; 82565-PO